=== PATIENT | male | born 1985 | race Caucasian/White ===

== ENCOUNTER 2022-01-06 02:53 | Emergency (ER) | payer OTHER ==
--- NOTE | 2022-01-06 03:43 | EDPHYS ---
Physician Documentation [facility] Name: Ben Crawford Age: 36 yrs Sex: Male : 1985 Arrival Date: 01/06/2022 Time: 02:55 Bed 20 Private MD: ED Physician Hernando Bernardo HPI: 01/06 03:34 This 36 yrs old Male presents to ER via EMS with complaints of RIGHT HAND kenya LAC/PUNCTURE, GLASS. Historical: - Allergies: 03:07 No Known Allergies; ja4 - PMHx: 03:08 Depressive disorder; Bipolar disorder; Schizophrenia; ja4 - Immunization history:: Client reports receiving the 2nd dose of the Covid vaccine. - Social history:: Smoking status: Patient reports the use of cigarette tobacco products, unknown amount Patient uses alcohol, weekly. ROS: 03:35 Constitutional: Negative for fever, chills, and weight loss, Eyes: Negative for injury, kenya pain, redness, and discharge, ENT: Negative for injury, pain, and discharge, Neck: Negative for injury, pain, and swelling, Cardiovascular: Negative for chest pain, palpitations, and edema, Respiratory: Negative for shortness of breath, cough, wheezing, and pleuritic chest pain, Abdomen/GI: Negative for abdominal pain, nausea, vomiting, diarrhea, and constipation, Back: Negative for injury and pain, : Negative for injury, bleeding, discharge, and swelling, Skin: Negative for injury, rash, and discoloration, Neuro: Negative for headache, weakness, numbness, tingling, and seizure, Psych: Negative for depression, anxiety, suicide ideation, homicidal ideation, and hallucinations, Allergy/Immunology: Negative for hives, rash, and allergies, Endocrine: Negative for neck swelling, polydipsia, polyuria, polyphagia, and marked weight changes, Hematologic/Lymphatic: Negative for swollen nodes, abnormal bleeding, and unusual bruising. 03:35 MS/extremity: Positive for injury or acute deformity, laceration, pain, swelling, tenderness, of the right hand and left leg. Exam: 03:35 Constitutional: This is a well developed, well nourished patient who is awake, alert, kenya and in no acute distress. Head/Face: Normocephalic, atraumatic. Eyes: Pupils equal round and reactive to light, extra-ocular motions intact. Lids and lashes normal. Conjunctiva and sclera are non-icteric and not injected. Cornea within normal limits. Periorbital areas with no swelling, redness, or edema. ENT: Nares patent. No nasal discharge, no septal abnormalities noted. Tympanic membranes are normal and external auditory canals are clear. Oropharynx with no redness, swelling, or masses, exudates, or evidence of obstruction, uvula midline. Mucous membranes moist. Neck: Trachea midline, no thyromegaly or masses palpated, and no cervical lymphadenopathy. Supple, full range of motion without nuchal rigidity, or vertebral point tenderness. No Meningismus. Chest/axilla: Normal chest wall appearance and motion. Nontender with no deformity. No lesions are appreciated. Cardiovascular: Regular rate and rhythm with a normal S1 and S2. No gallops, murmurs, or rubs. Normal PMI, no JVD. No pulse deficits. Respiratory: Lungs have equal breath sounds bilaterally, clear to auscultation and percussion. No rales, rhonchi or wheezes noted. No increased work of breathing, no retractions or nasal flaring. Abdomen/GI: Soft, non-tender, with normal bowel sounds. No distension or tympany. No guarding or rebound. No evidence of tenderness throughout. Back: No spinal tenderness. No costovertebral tenderness. Full range of motion. Male : Normal genitalia with no discharge or lesions. Skin: Warm, dry with normal turgor. Normal color with no rashes, no lesions, and no evidence of cellulitis. Neuro: Awake and alert, GCS 15, oriented to person, place, time, and situation. Cranial nerves II-XII grossly intact. Motor strength 5/5 in all extremities. Sensory grossly intact. Cerebellar exam normal. Normal gait. Psych: Awake, alert, with orientation to person, place and time. Behavior, mood, and affect are within normal limits. 03:35 Musculoskeletal/extremity: Extremities: grossly normal except: decreased ROM, pain, ROM: intact in all extremities, full active range of motion, full passive range of motion, Circulation is intact in all extremities. Sensation intact. Compartment Syndrome exam of affected extremity: is normal. DVT Exam: No signs of deep vein thrombosis. no pain, no swelling, no tenderness, negative Homans' sign noted on exam, no appreciated bluish discoloration, no erythema, no increased warmth. Vital Signs: 02:57 BP 131 / 90; Pulse 98; Resp 17; Temp 98.8; Pulse Ox 98% ; Weight 81.65 kg; Height 6 ft. ja4 4 in. (193.04 cm); Pain 10/10; 04:24 BP 117 / 96; Pulse 73; Resp 19; Pulse Ox 97% on R/A; ke1 02:57 Body Mass Index 21.91 (81.65 kg, 193.04 cm) ja4 [place] Coma Score: 03:15 Eye Response: spontaneous(4). Verbal Response: oriented(5). Motor Response: obeys ja4 commands(6). Total: 15. MDM: 02:57 [facility] 03[facility]39 Differential diagnosis: open fracture, abrasion. Data reviewed: vital signs, [facility] notes, lab test result(s), radiologic studies, plain films. Data interpreted: Pulse oximetry: on room air is 98 %. Test interpretation: by ED physician or midlevel provider: plain radiologic studies. Counseling: I had a detailed discussion with the patient and/or guardian regarding: the historical points, exam findings, and any diagnostic results supporting the discharge/admit diagnosis, lab results, radiology results, the need for outpatient follow up, for definitive care, 01/06 03:34 Order name: Hand Right 3 [facility] 01/06 03:39 Order name: Wound Care; Complete Time: 03:43 kenya Administered Medications: 03:43 Drug: Neosporin (qadhvwre-hjzvmkohbd-gbigmnyct) Ointment 1 application Route: Topical; ke1 Site: right hand; 04:26 Follow up: Response: No adverse reaction ke1 03:43 Drug: KeFLEX (cephalexin) 500 mg Route: PO; ke1 04:26 Follow up: Response: No adverse reaction ke1 Disposition Summary: 01/06/22 03:42 Discharge Ordered Location: Home kenya Problem: new kenya Symptoms: have improved kenya Condition: Stable kenya Diagnosis - Laceration without foreign body of right hand kenya - Contusion of left thigh kenya Followup: kenya - With: Private Physician - When: 2 - 3 days - Reason: Recheck today's complaints, Continuance of care, Re-evaluation by your physician Discharge Instructions: - Discharge Summary Sheet kenya - Laceration Care, Adult kenya - Puncture Wound kenya - Laceration Care, Adult, [id number] kenya - Puncture Wound, Xcbz-[id number] kenya Forms: - Medication Reconciliation Form kenya - Thank You Letter kenya - Antibiotic Education kenya - Prescription Opioid Use kenya Prescriptions: - Cephalexin 500 mg Oral Capsule - take 1 capsule by ORAL route every 6 hours for 7 days; 28 capsule; Refills: 0, kenya Product Selection Permitted Signatures: Dispatcher [employer] Hernando Minor MD MD cha Ebrottie, Kouassi RN RN ke1 Erick Aguirre RN RN ja4
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
[2022-01-06] MEDS ORDERED: levETIRAcetam 500 MG TAB ONE (03:48)
[2022-01-06] MEDS ORDERED: NEOMYCIN/BAC/POLY OPTH 3.5GM ONE (03:48)
[2022-01-06 04:49] VITALS: TEMP 98.8
[2022-01-06 04:51] VITALS: BP 117/96; O2SAT 97
--- NOTE | 2022-01-06 19:43 | RAD REPORT ---
EXAM DESCRIPTION: RAD - Hand Right 3 View - 01/06/2022 3:51 am CLINICAL HISTORY: PAIN COMPARISON: None. FINDINGS: 3 views of the right hand. No acute fracture or dislocation. Normal osseous mineralization . IMPRESSION: 1. No acute fracture or dislocation. Electronically signed by: Armaan Caicedo 01/06/2022 4:07 AM CDT Due to temporary technical issues with the PACS/Fluency reporting system, reports are being signed by the in house radiologists without review as a courtesy to insure prompt reporting. The interpreting radiologist is fully responsible for the content of the report.
== END 2022-01-06 04:26 | disposition home or self-care (01) ==
LOC: ER 02:53
DX: S61.411A Laceration without foreign body of right hand, initial encounter (principal); S70.12XA Contusion of left thigh, initial encounter; F17.210 Nicotine dependence, cigarettes, uncomplicated
CPT/HCPCS: 99283